=== PATIENT | male | born 1960 | race Caucasian/White ===

== ENCOUNTER 2018-07-21 18:50 | Inpatient (IN) | payer OTHER ==
[2018-07-21 19:29] LABS: #Eosinphils 0.3 thou/uL (0.0-0.7); #Lymphocytes 2.3 thou/uL (1.20-3.40); #Monocytes 0.8 thou/uL (0.11-0.59); #Neutrophils 6.6 thou/uL (1.40-6.50); %Basophils 0.3 % (0.0-1.0); %Eosinophils 3.4 % (0.0-10.0); %Lymphocytes 22.9 % (21.0-51.0); %Monocytes 7.7 % (0.0-10.0); %Neutrophils 65.8 % (42.0-75.0); Hemoglobin 14.4 g/dL (14.0-18.0); Mean Corpuscular HGB CONC 31.5 g/dL (32.0-36.0); Mean Corpuscular Hemoglobin 31.1 pg (27.0-31.0); Mean Platelet Volume 8.6 fL (7.4-10.4); Platelet Count 176 thou/uL (130-400); Red Blood Cell (RBC) Count 4.63 mill/uL (4.70-6.10); White Blood Cell (WBC) Count 10.1 thou/uL (4.8-10.8)
--- NOTE | 2018-07-21 19:54 | RAD ---
PORTABLE CHEST: 07/21/18 HISTORY: Chest pain. Lung brar are clear. Heart and mediastinum unremarkable. Vasculature is normal. IMPRESSION: No acute process. POS: [facility]
[2018-07-21 20:05] LABS: CKMB 2.2 ng/mL (0-6.6)
[2018-07-21] MEDS ORDERED: Nitroglycerin 0.4 MG TAB (25 Tab Bottle) ONE (20:29)
--- NOTE | 2018-07-21 20:35 | PDOC.FPRHP ---
- History of Present Illness Chief Complaint: Chest pain History of Present Illness: Mr. Odell presents for evaluation of chest pain to the ED He reports that today he has had a pressure like pain in his Left upper chest for the day today, not associated with SOB or increased with exercise. He denies any palpitations, visual changes, diaphoresis, orthopnea. He reports recent change in his bowel habits to be looser, and increased acid reflux type symptoms. 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 ED Course: 325 ASA, SL Nitro CBC, CMP, tropx1, CXR - Allergies/Adverse Reactions Allergies Allergy/AdvReac Type Severity Reaction Status Date / Time No Known Drug Allergies Allergy Verified 07/21/18 23:20 - History PMHx: CAD, DMII, IBS, HLD, HTN PSHx: 5 stent placed FHx: NC Social: no TAD, lives in [place] - Review of Systems General: denies: fever/chills, weight/appetite/sleep changes Eyes: denies: vision changes ENT: denies: nasal congestion Respiratory: denies: cough, congestion, shortness of breath, exercise intolerance Cardiovascular: reports: chest pain. denies: palpitation, edema, paroxysmal nocturnal dyspnea, orthopnea Gastrointestinal: reports: diarrhea. denies: nausea, vomiting, constipation Genitourinary: denies: incontinence, dysuria Skin: denies: rashes, lesions Musculoskeletal: denies: pain, tenderness Neurological: denies: numbness, syncope Psychological: denies: anxiety, depression - Vital signs BP: 120/76 HR: 49 RR: 18 Tmax: 98.7 Pox: 96% on RA Wt: 113.4kg - Physical Exam Constitutional: NAD, awake, alert and oriented HEENT: normocephalic and atraumatic, grossly normal vision, grossly normal hearing, MMM Neck: supple, trachea midline Chest: no-tender to palpation Heart: normal S1/S2, no murmurs/rubs/gallops, pulses present, no edema, other ( alma in 50-40s) Lungs: CTAB, no respiratory distress Abdomen: soft, bowel sounds present Musculoskeletal: normal structure, ROM grossly normal Neurological: no focal deficit Skin: no rash/lesions, good turgor Heme/Lymphatic: no unusual bruising or bleeding Psychiatric: normal mood and affect FMR H&P: Results - Labs Result Diagrams: 07/21/18 19:12 07/21/18 20:06 Lab results: WBC 10.1 thou/uL (4.8-10.8) 07/21/18 19:12 Hgb 14.4 g/dL (14.0-18.0) 07/21/18 19:12 Hct 45.8 % (42.0-52.0) 07/21/18 19:12 MCV 99.0 fL (78.0-98.0) H 07/21/18 19:12 Plt Count 176 thou/uL (130-400) 07/21/18 19:12 Neutrophils % 65.8 % (42.0-75.0) 07/21/18 19:12 CK-MB (CK-2) 2.2 ng/mL (0-6.6) 07/21/18 19:12 - EKG Interpretation EKG: bradycardia, no ST elevation, no Q waves in v3-4: read as age indeterminate septal infarct repeat EKG shows no changes FMR H&P: A/P - Problem List (1) Unstable angina Current Visit: Yes Status: Acute (2) HTN (hypertension) Current Visit: Yes Status: Acute Code(s): I10 - ESSENTIAL (PRIMARY) HYPERTENSION (3) CAD (coronary artery disease) Current Visit: Yes Status: Acute Code(s): I25.10 - ATHSCL HEART DISEASE OF [place] CORONARY ARTERY W/O ANG PCTRS (4) DMII (diabetes mellitus, type 2) Current Visit: Yes Status: Acute (5) IBS (irritable bowel syndrome) Current Visit: Yes Status: Acute (6) HLD (hyperlipidemia) Current Visit: Yes Status: Acute Code(s): E78.5 - HYPERLIPIDEMIA, UNSPECIFIED - Plan Unstable angina - indeterminate troponins, chest pain responded to nitro, hypotense and bradycardic in ED - trend troponins x3, Mg ordered, nitropaste added for CP unresolved after 15mins SL nitro given - EKG for chest pain - Nitro drip beginning at 5, titrate for pain relief, morphine for pain, bolus 1L NS - lovenox 1mg/kg - admit to ICU - cardiology consulted, appreciate recs Hx of CAD + stents - continue home anticoagulants - consider stress when CP resolved HTN - hold coreg for bradycardia - vitals q2hr DMII - hold metformin HLD - continue home meds IBS - continue home meds code: full ppx: bird Disposition/LOS: Admit to ICU for unstable angina and nitro drip, monitor closely FMR H&P: Upper Level - Pertinent history 57 y/o M with CAD presents for chest pain. States it is 4/10 and is mostly in his L upper chest. Ongoing. Is similar to prior episodes of angina pain. Pt had 5 stents [place] [address] Beltran. He did take a baby ASA this AM. Pain not resolved with Nitro in ED. - Pertinent findings Mildly elevated troponis. - Plan Date/Time: 07/21/182032 IPradeep, have evaluated this patient and agree with findings/plan as outlined by [facility] intern resident. Pertinent changes/additions are listed here. 1. Chest Pain - Likely UA. Known CAD with slightly elevated troponins. Pain not resolved with Nitro SL. As above, we spoke with cardiology after seeing patient who recommended IV Nitro and LMWH if chest pain not resolved. Will trend troponins and repeat EKG that showed previous TN and sinus bradycardia. Transfer to ICU on Nitro drip. Cards aware. Need records of OSH catheterization of possible. 2. Sinus Bradycardia - Pt states he runs low and the lowest we observed was 47 while he was lying. Once he sat up, HR increased to low 60s. Cardiology notified. No dizziness, weakness. 3. HTN - hold home meds 4. HLD - Continue statin 5. DM2 - home medications and SSI 6. PTSD - no acute issues
[2018-07-21 20:44] LABS: ALT (SGPT) 52 U/L (8-55); AST (SGOT) 30 U/L (5-34); Albumin 3.8 g/dL (3.5-5.0); Alkaline Phosphatase 90 U/L (40-150); Anion Gap 10 mmol/L (10-20); BUN (Urea Nitrogen) 19 mg/dL (8.4-25.7); Bilirubin, Total 0.4 mg/dL (0.2-1.2); CK (CPK) 192 U/L (30-200); Calc. Creatinine Clearance 0 mL/min (70-130); Calcium 9.7 mg/dL (7.8-10.44); Carbon Dioxide 28 mmol/L (22-29); Chloride 107 mmol/L (98-107); Estimated GFR-MDRD 75; Globulin 3.1 g/dL (2.4-3.5); Glucose 105 mg/dL (70-105); Lipase 51 U/L (8-78); Protein, Total 6.9 g/dL (6.0-8.3); Sodium 141 mmol/L (136-145)
[2018-07-21] MEDS ORDERED: Morphine 4 MG/ML VIAL ONE (22:05)
[2018-07-21] MEDS ORDERED: Nitroglycerin 2% Ointment 1 INCH/1 GM Packet ONE (22:07)
[2018-07-21] MEDS ORDERED: Nitroglycerin 0.4 MG TAB (25 Tab Bottle) PO PRN (22:09)
[2018-07-21] MEDS ORDERED: Clopidogrel Bisulfate 300 MG TAB PO SCH (22:09)
[2018-07-21] MEDS ORDERED: Morphine 4 MG/ML VIAL SLOW IVP PRN (22:09)
[2018-07-21] MEDS ORDERED: Pantoprazole 40 MG VIAL IVP SCH (22:09)
[2018-07-21] MEDS ORDERED: Ondansetron PF 4 MG/2 ML Vial IVP PRN (22:09)
[2018-07-21] MEDS ORDERED: Ondansetron ODT 4 MG TAB PO PRN (22:09)
[2018-07-21] MEDS: Sodium Chloride 0.9% 1,000 ML IV SCH ×2 (22:15→23:33)
[2018-07-21] MEDS ORDERED: Nitroglycerin 50 MG/250 ML BOT 250 ML IVPB SCH (22:30)
[2018-07-21] MEDS ORDERED: Nitroglycerin 50 MG/250 ML BOT 250 ML ONE (22:37)
--- NOTE | 2018-07-21 23:04 | PDOC.EVN ---
Event Note - Event Note Event Note: residents evaluated PT in ED after called to admit, approx 30 mins. Active CP after SL nitro given [address] Bella called, recommended anticoagulation, nitro drip with transfer from ED after pain resolved. ED physician contacted with Cardiology recs, reported PT already sent to floor. Went to evaluate on floor with Hand Grinder, CP resolved at that time, stat EKG ordered, no changes present, recommended transferring to ICU for nitro drip, morphine and anticoagulation. PT transferred to ICU, medicine attending, Dr. Wright notified.
[2018-07-21 23:07] VITALS: BP 113/73
[2018-07-22] MEDS: Enoxaparin Sodium 120 MG/0.8 ML SYRINGE SC SCH ×2 (00:30→02:04)
[2018-07-22 00:42] VITALS: BMI 36.4
[2018-07-22] MEDS: Sodium Chloride 0.9% 1,000 ML IV SCH ×7 (01:56→09:14)
[2018-07-22 04:41] LABS: Anion Gap 11 mmol/L (10-20); BUN (Urea Nitrogen) 19 mg/dL (8.4-25.7); Calc. Creatinine Clearance 147 mL/min (70-130); Calcium 8.9 mg/dL (7.8-10.44); Carbon Dioxide 22 mmol/L (22-29); Chloride 111 mmol/L (98-107); Estimated GFR-MDRD 84; Glucose 118 mg/dL (70-105); Potassium 4.3 mmol/L (3.5-5.1); Sodium 140 mmol/L (136-145)
[2018-07-22 05:08] LABS: Band 5 % (5-11); Eosinophils 2 % (0-10); Hemoglobin 12.4 g/dL (14.0-18.0); Lymphocytes 22 % (21-51); MDiff Complete? YES; Mean Corpuscular HGB CONC 33.4 g/dL (32.0-36.0); Mean Corpuscular Hemoglobin 31.4 pg (27.0-31.0); Mean Corpuscular Volume 93.9 fL (78.0-98.0); Mean Platelet Volume 8.6 fL (7.4-10.4); Monocytes 5 % (0-10); Neutrophil 65 % (42-75); PLT Morphology Comment Appears Adequate; Platelet Count 155 thou/uL (130-400); RBC Distribution Width 12.7 % (11.5-14.5); RBC Morphology Normal; Reactive Lymphocytes 1 % (0-10); Red Blood Cell (RBC) Count 3.96 mill/uL (4.70-6.10); White Blood Cell (WBC) Count 7.8 thou/uL (4.8-10.8)
[2018-07-22] MEDS ORDERED: Acetaminophen 325 MG TAB PO SCH (06:45)
--- NOTE | 2018-07-22 06:47 | PDOC.FM ---
- Subjective Subjective: No acute events overnight. Pt resting comfortably in bed and reports he is chest pain free. Does report headache, otherwise no complaints. - Objective MAR Reviewed: Yes Vital Signs & Weight: Vital Signs (12 hours) Temp Pulse Resp BP Pulse Ox 07/22/18 00:42 97 07/21/18 22:20 98.9 F 07/21/18 22:09 98.4 F 52 L 18 113/73 95 Weight Weight 118.6 kg Most Recent Monitor Data Heart Rate from ECG 51 NIBP 107/71 NIBP BP-Mean 83 Respiration from ECG 18 SpO2 96 I&O: 07/20/18 07/21/18 07/22/18 06:59 06:59 06:59 Intake Total 1250 Output Total 300 Balance 950 Result Diagrams: 07/22/18 03:56 07/22/18 03:56 Phys Exam - Physical Examination Constitutional: NAD HEENT: PERRLA, moist MMs Neck: no nodes, no JVD Respiratory: no wheezing, no rales, no rhonchi, clear to auscultation bilateral Cardiovascular: RRR, no significant murmur, no rub Gastrointestinal: soft, non-tender, no distention, positive bowel sounds Musculoskeletal: no edema, pulses present Neurological: non-focal, moves all 4 limbs Psychiatric: normal affect, A&O x 3 Skin: no rash, cap refill <2 seconds Dx/Plan (1) Unstable angina Status: Acute (2) CAD (coronary artery disease) Code(s): I25.10 - ATHSCL HEART DISEASE OF [place] CORONARY ARTERY W/O ANG PCTRS Status: Acute (3) DMII (diabetes mellitus, type 2) Status: Acute (4) HLD (hyperlipidemia) Code(s): E78.5 - HYPERLIPIDEMIA, UNSPECIFIED Status: Acute (5) HTN (hypertension) Code(s): I10 - ESSENTIAL (PRIMARY) HYPERTENSION Status: Acute (6) IBS (irritable bowel syndrome) Status: Acute - Plan Plan: Unstable angina - indeterminate troponins, have trended down and pt is now chest pain free. Will cont nitro drip for now @ 10mcgs - will await cardiology recs Hx of CAD + stents - th lovenox and dual anti-platelet therapy - cards consulted, appreciate recs HTN - hold coreg for bradycardia - vitals q2hr - pt bradycardic into high thirties overnight; however, bradycardia is chronic problem for pt. He is asymptomatic and pressures are stable DMII - hold metformin HLD - continue home meds IBS - continue home meds Dispo: Guarded. Cont nitro drip and await cardiology recommendations for med management vs intervention.
[2018-07-22] MEDS ORDERED: Acetaminophen 325 MG TAB PO PRN (07:04)
[2018-07-22] MEDS ORDERED: Methocarbamol 500 MG TAB PO SCH (09:00)
[2018-07-22] MEDS ORDERED: Gabapentin 400 MG CAP PO SCH (09:00)
[2018-07-22] MEDS ORDERED: Cyanocobalamin (Vitamin B-12) 1,000 MCG TAB PO SCH (09:00)
[2018-07-22] MEDS ORDERED: Prasugrel 10 MG TAB PO SCH (09:00)
[2018-07-22] MEDS ORDERED: Ezetimibe 10 MG TAB PO SCH (09:00)
[2018-07-22] MEDS ORDERED: Aspirin 81 mg Enteric Coated Tablet PO SCH (09:00)
[2018-07-22] MEDS ORDERED: Lisinopril 5 MG TAB PO SCH (09:00)
[2018-07-22] MEDS ORDERED: Atorvastatin Calcium 40 MG TAB PO SCH (09:00)
[2018-07-22] MEDS ORDERED: Methocarbamol 500 MG TAB PO PRN (10:53)
[2018-07-22 11:56] VITALS: TEMP 98.2
[2018-07-22] MEDS ORDERED: Enoxaparin Sodium 120 MG/0.8 ML SYRINGE SC SCH (12:45)
--- NOTE | 2018-07-22 13:38 | EKG ---
Test Reason : Blood Pressure : / mmHG Vent. Rate : 053 BPM Atrial Rate : 053 BPM P-R Int : 178 ms QRS Dur : 086 ms QT Int : 406 ms P-R-T Axes : 029 -09 043 degrees QTc Int : 380 ms Sinus bradycardia Anteroseptal infarct , age undetermined Abnormal ECG Confirmed by DONG COLÓN DO ([id number]), film editor supervisor SWETA DEAN ([id number]) on 07/22/2018 1:38:02 PM Referred By: Confirmed By:DONG COLÓN DO
--- NOTE | 2018-07-22 15:03 | PDOC.EVN ---
Event Note - Event Note Event Note: Pt wishes to go home to [place] although this is not advised by primary or cardiology team. He is aware of the risks and reports he is currently chest pain free. He will be required to sign out AMA. Will send nitro SL to pharmacy and 911/ER precautions reviewed.
[2018-07-22] MEDS ORDERED: Gabapentin 300 MG CAP PO SCH (21:00)
--- NOTE | 2018-07-24 07:25 | HP ---
ADDENDUM: Please see the note from Dr. Pruitt for which I agree. The patient was seen, evaluated, examined, and discussed with the resident by bedside. HISTORY OF PRESENT ILLNESS: This is a 57-year-old white male, here from [place] with known coronary artery disease including PTCA at least x5, last one in June of 2017, comes in with chest pain today. He does have a history of angina, this was definitely different from his baseline, that he tells did not seem like normal. He did respond to nitroglycerin, but bad enough that he went to the emergency room. He responded to nitroglycerin in the ER and Cardiology decided to put him in the ICU on a nitroglycerin drip, p.r.n. morphine, nasal cannula O2, and anticoagulation. Currently, he is chest pain free and comfortable breathing. PAST MEDICAL HISTORY: Per the resident's history and physical, for which I agree. PAST SURGICAL HISTORY: Per the resident's history and physical, for which I agree. MEDICATIONS: Per the resident's history and physical, for which I agree. SOCIAL HISTORY: Per the resident's history and physical, for which I agree. REVIEW OF SYSTEMS: Per the resident's history and physical, for which I agree. PHYSICAL EXAMINATION: VITAL SIGNS: Afebrile. Pulses in the 40s. Blood pressure 90s/60s on the nitroglycerin. ENT: Otherwise normal. CHEST: Clear. CARDIOVASCULAR: Regular rate and rhythm. EXTREMITIES: Showed no edema. LABORATORY DATA: Blood workup showed indeterminate troponin, otherwise unremarkable. EKG; just some minor changes, nothing extreme. ASSESSMENT: Chest pain with known coronary artery disease. PLAN: Admit him to the ICU and await Dr. Bella treasury assistant's recommendations, as far as does he want the stress test tomorrow, proceed with the heart cath, etc. For the meantime, nitroglycerin drip, morphine p.r.n., oxygen, and anticoagulation. We will follow serial troponin I levels and otherwise watch him closely in the ICU. Job ID: [id number]
--- NOTE | 2018-07-24 08:01 | PRG ---
DATE OF SERVICE: ADDENDUM: Please see the note from Dr. Hancock, for which I agree. The patient was seen, evaluated, examined, and discussed with the residents by bedside. Overnight, chest pain free. He has some musculoskeletal, neck, and chest wall type pain, but on the nitroglycerin, seems to be pain free. The patient really wants to go home, as he has been told before that if his heart catheterization would show any blockage, he would probably need coronary bypass graft surgery and does not want to do that here in town considering he is from [place]. Cardiology is following him, and we will give their recommendations as far as his medication management. The troponins did not increase, so we will see what Cardiology says and make plans on that, but he is currently stable. Job ID: [id number]
--- NOTE | 2018-07-24 12:10 | CON ---
DATE OF CONSULTATION: CRITICAL CARE NOTE: TIME: 40 minutes. HISTORY OF PRESENT ILLNESS: This patient is a 57-year-old gentleman, who presents for evaluation of chest discomfort. The patient has a history of severe coronary artery disease. He has had multiple stents placed in his left anterior descending artery. He states that in June of this year he had 2 stents placed into the left anterior descending artery. The patient states he subsequently was doing well. He was visiting from out of town and developed substernal left-sided chest discomfort this morning. He states it somewhat radiated into his neck. He received nitroglycerin, which seemed to improve the pain. The patient's chest pain finally has resolved. He denies having any present chest discomfort. PAST MEDICAL HISTORY: 1. Coronary artery disease. 2. Diabetes mellitus. 3. Irritable bowel syndrome. 4. PTSD. 5. Anxiety. PAST SURGICAL HISTORY: Knee surgery. SOCIAL HISTORY: Nonsmoker. MEDICATIONS: 1. Aspirin 81 daily. 2. Prasugrel 10 daily. 3. Coreg CR 10 daily. 4. Lipitor 80 daily. 5. Zetia 10 daily. 6. Metformin. ALLERGIES: NO KNOWN DRUG ALLERGIES. PHYSICAL EXAMINATION: GENERAL: Obese gentleman, in no acute distress. VITAL SIGNS: Blood pressure was 90/60. NECK: No jugular venous distention. LUNGS: Clear to auscultation. HEART: Regular rate and rhythm. Normal S1 and S2. ABDOMEN: Nondistended. EXTREMITIES: Showed no edema. LABORATORY RESULTS: Sodium 141, potassium 4.0, chloride 107, bicarbonate 28, BUN 19, creatinine is 1.0. Troponin was 0.032. His white blood cell count is 10.1, hemoglobin 14.4, hematocrit 45.8. His platelets are 176. EKG revealed marked sinus bradycardia with Q waves suggested of a previous anteroseptal infarct. IMPRESSION: 1. Unstable angina. 2. History of severe coronary artery disease. 3. History of percutaneous transluminal coronary angioplasty and stents placed to the left anterior descending artery. 4. Hypertension. 5. Dyslipidemia. 6. Obesity. 7. Anxiety disorder. This gentleman presents with chest pain suggestive of angina. It was improved with nitroglycerin and has subsequently resolved. There were no acute ST-T wave changes on electrocardiogram. The patient will be transferred to the ICU. He will be treated with Lovenox, aspirin, and IV nitroglycerin. Further recommendation will follow. Critical Care note time: 40 minutes. Job ID: [id number] [id number]
== END 2018-07-22 14:20 | disposition left against medical advice (07) | DRG 303 ==
LOC: ERS 18:50 → 2SW 21:50 → OBSVTOIN 21:50 → CCU 22:36
PROVIDERS: ADMIT Family Medicine; ATTEND Family Medicine
DX: I25.110 Atherosclerotic heart disease of native coronary artery with unstable angina pectoris (principal); R00.1 Bradycardia, unspecified; E11.9 Type 2 diabetes mellitus without complications; I10 Essential (primary) hypertension; E78.5 Hyperlipidemia, unspecified; K58.9 Irritable bowel syndrome, unspecified; F43.10 Post-traumatic stress disorder, unspecified; F41.9 Anxiety disorder, unspecified; E66.9 Obesity, unspecified; Z68.36 Body mass index [BMI] 36.0-36.9, adult; Z79.84 Long term (current) use of oral hypoglycemic drugs; Z79.82 Long term (current) use of aspirin; Z79.899 Other long term (current) drug therapy; Z95.5 Presence of coronary angioplasty implant and graft
CPT/HCPCS: 36415; 71045; 80048; 80053; 82550; 82553; 83690; 83735; 84484; 85025; 93005; 93010; 94760; C9113; J1650; J2270